=== PATIENT | male | born 1950 | race Caucasian/White ===

== ENCOUNTER 2020-11-06 09:19 | Observation (INO) ==
[2020-11-06 10:46] LABS: Basophils % 0.4 %; Eosinophils # 0.1 K/mcL (0.0-0.6); Eosinophils % 1.4 %; Hematocrit 45.8 % (37.5-50.1); Hemoglobin 15.5 g/dL (12.9-16.9); Immature Granulocytes % 0.5 % (0-4); Lymphocytes % 10.1 %; Mean Corpuscular HGB Conc 33.8 g/dL (31.6-35.5); Mean Corpuscular Hemoglobin 30.6 pg (28.0-33.3); Mean Corpuscular Volume 90.5 fL (83.0-100.0); Mean Platelet Volume 9.7 fL (9.4-12.4); Monocytes # 0.6 K/mcL (0.0-1.3); Monocytes % 6.6 %; Neutrophils # 7.6 K/mcL (1.6-8.9); Platelet Count 163 K/mcL (140-400); Red Blood Count 5.06 M/mcL (4.19-5.50); Red Cell Distribution Width 13.2 % (11.5-14.5); White Blood Count 9.4 K/mcL (4.3-11.1)
[2020-11-06 11:04] LABS: BUN/Creatinine Ratio 21 (6-26); Blood Urea Nitrogen 19 mg/dL (8-23); Calcium 9.5 mg/dL (8.6-10.3); Carbon Dioxide 25 mEq/L (23-29); Chloride 107 mEq/L (98-107); Glucose 106 mg/dL (70-105); Magnesium 2.2 mg/dL (1.6-2.6); Osmolality,Calculated 293 (280-300); Potassium 3.5 mEq/L (3.5-5.1); Sodium 140 mEq/L (136-145); eGFR For African Americans > 60 (> 60); eGFR For Non-African Americans > 60 (> 60)
[2020-11-06 11:26] LABS: Bilirubin,Urine Negative (Negative); Blood,Urine Negative (Negative); Clarity,Urine Clear (Clear); Color,Urine Yellow (Yellow); Glucose,Urine (UA) Normal (Normal); Ketones,Urine Negative (Negative); Leukocyte Esterase,Urine Negative (Negative); Nitrite,Urine Negative (Negative); PH,Urine 5.5 pH Units (5.0-8.0); Protein,Urine Trace mg/dL (Neg-Trace); Specific Gravity,Urine 1.026 (1.010-1.025); Urobilinogen,Urine Normal (Normal)
[2020-11-06] MEDS ORDERED: levETIRAcetam 250 MG TABLET PO ONE (15:26)
[2020-11-06] MEDS ORDERED: Gadolinium Contrast Agent (WT Based) IV PRN (15:27)
[2020-11-06] MEDS ORDERED: Melatonin 3 MG TABLET PO PRN (16:12)
[2020-11-06] MEDS ORDERED: Naloxone 0.4 MG/ML INJ IVP PRN (16:12)
[2020-11-06] MEDS ORDERED: Acetaminophen 325 MG TABLET PO PRN (16:12)
[2020-11-06] MEDS ORDERED: *HR* Heparin 5,000 UNIT/ML VIAL SQ SCH (18:00)
[2020-11-06 19:20] VITALS: BP 131/66
[2020-11-06] MEDS: Carbidopa/Levodopa 25/100 TABLET PO SCH ×2 (19:34→21:03)
[2020-11-06] MEDS ORDERED: levETIRAcetam 250 MG TABLET PO SCH (21:00)
[2020-11-07] MEDS ORDERED: Cholecalciferol (D-3) 1,000 UNIT (25MCG) TABLET PO SCH (09:00)
[2020-11-07] MEDS ORDERED: [UNRECOGNIZED DRUG - OTHER] PO SCH (09:00)
[2020-11-07] MEDS ORDERED: CHLORTHALIDONE PO SCH (09:00)
[2020-11-07] MEDS ORDERED: ATENOLOL PO SCH (09:00)
[2020-11-07] MEDS ORDERED: atenoloL 50 MG TABLET PO SCH (09:00)
== END 2020-11-06 23:13 | disposition other institution (70) ==
LOC: 3BNU 09:19 → EMEROOARM 09:19 → 3BNU 18:41
PROVIDERS: ADMIT Internal Medicine; ATTEND Internal Medicine